=== PATIENT | male | born 1975 | race Two or more races ===

== ENCOUNTER 2020-10-03 14:08 | Emergency (ER) | payer OTHER ==
[~2020-10-03] VITALS: Ht 193 cm; Wt 129.3 kg
== END 2020-10-03 17:59 | disposition home or self-care (01) ==
LOC: ER 14:08
DX: E11.65 Type 2 diabetes mellitus with hyperglycemia (principal); Z03.818 Encounter for observation for suspected exposure to other biological agents ruled out